=== PATIENT | male | born 2000 | race Caucasian/White ===

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

== ENCOUNTER → 2022-10-25 | Outpatient (CLI) | payer OTHER ==
[2022-10-25 13:45] LABS: HIV 1&2 SCREEN NEGATIVE (NEGATIVE)
== END ==
LOC: M WUC 10:07
PROVIDERS: ATTEND Physician Assistant
DX: R30.0 Dysuria (principal); N48.22 Cellulitis of corpus cavernosum and penis

== ENCOUNTER → 2022-10-25 | Outpatient (REF) | payer OTHER ==
[2022-10-25 14:32] LABS: GC DNA AMPLIFICATION NEGATIVE (NEGATIVE)
== END ==
LOC: M LAB REF 12:15
PROVIDERS: ATTEND Physician Assistant
DX: R30.0 Dysuria (principal)